=== PATIENT | male | born 1985 | race Caucasian/White ===

== ENCOUNTER → 2016-11-04 | Outpatient (CLI) | payer OTHER ==
--- NOTE | 2016-11-04 10:01 | DIAGNOSTIC IMAGING REPORT ---
PET/CT SKULL-THIGH CLINICAL HISTORY: LYMPHOMA COMPARISON STUDY: 07/24/2015 FINDINGS: The patient was injected with 15.8 mCi of F 18 labeled FDG. Following the standard induction phase, PET/CT scanning was performed from the skull base the upper thigh region. Within the neck, there is no evidence of pathologic mirlande activity. Increased within the left infratemporal fossa is felt to be related to muscular activity. Within the thorax, there is no pathologic mirlande activity. There are no FDG avid parenchymal nodules. There are no pleural effusions. There is no focal pulmonary consolidation. Within the abdomen and pelvis, there is physiologic urinary tract and bowel activity. There is no pathologic mirlande activity. There is no pathologic hepatic, splenic, or adrenal gland activity. There are no FDG avid bone lesions. There is bilateral L5 spondylolysis. There is a grade 1 spondylolisthesis of L5 and S1. There is a nonobstructing 3 mm left renal calculus. IMPRESSION: No evidence of pathologic FDG activity. Electronically signed by: Stuart Farley M.D. 11/04/2016 9:59 AM Dictated Date/Time: 11/04/2016 9:52 AM
== END | disposition home or self-care (01) ==
LOC: C.PET 07:43
PROVIDERS: ATTEND Internal Medicine
DX: C81.04 Nodular lymphocyte predominant Hodgkin lymphoma, lymph nodes of axilla and upper limb (principal); C85.90 Non-Hodgkin lymphoma, unspecified, unspecified site; F06.4 Anxiety disorder due to known physiological condition; G89.3 Neoplasm related pain (acute) (chronic); I80.9 Phlebitis and thrombophlebitis of unspecified site; R12 Heartburn

== ENCOUNTER → 2017-07-05 | Outpatient (CLI) | payer OTHER ==
--- NOTE | 2017-07-05 11:55 | DIAGNOSTIC IMAGING REPORT ---
PET/CT SKULL-THIGH CLINICAL HISTORY: 32 years-old Male with LYMPHOMA. Follow-up study in a patient with lymphoma. Subsequent treatment strategy COMPARISON: PET CT 11/04/2016, 07/24/2015 and 05/06/2015 TECHNIQUE: The patient was injected with 12.8 mCi of F-18 fluorodeoxyglucose (FDG) and an emission scan was performed from the skull vertex to the toes. Noncontrast CT was performed for attenuation correction and anatomic localization. The blood glucose level was 92 mg/dl. FINDINGS: HEAD AND NECK: Areas of hypermetabolic activity noted about the oral pharynx, submandibular, sublingual glands and cricoid cartilage, likely physiologic. Otherwise, there is a physiologic distribution of activity, with no hypermetabolic foci. CHEST: There is a physiologic distribution of activity, with no hypermetabolic mediastinal, hilar or pulmonary foci. ABDOMEN AND PELVIS: There is a physiologic distribution of activity within the liver, spleen, adrenal glands, gastrointestinal and urinary tracts, with no hypermetabolic foci. Likely physiologic uptake noted about the bilateral testicles. Nonspecific mildly increased uptake noted about the prostate. MUSCULOSKELETAL SYSTEM AND EXTREMITIES: There is a physiologic distribution of activity within the bone marrow, with no hypermetabolic foci. ADDITIONAL CT FINDINGS: Left subclavian [id number] catheter courses into the left-sided SVC terminating within the region of the coronary sinus, unchanged. No suspicious lung nodules identified. No pathologic-appearing adenopathy is seen. Nonobstructing left-sided nephrolithiasis. Normal appendix. Soft tissues and bones appear unremarkable. IMPRESSION: Unremarkable exam without evidence of residual or recurrent disease. The above report was generated using voice recognition software. It may contain grammatical, syntax or spelling errors. Electronically signed by: Barron Stone M.D. 07/05/2017 11:54 AM Dictated Date/Time: 07/05/2017 10:49 AM
== END | disposition home or self-care (01) ==
LOC: C.PET 08:12
PROVIDERS: ATTEND Internal Medicine
DX: C81.04 Nodular lymphocyte predominant Hodgkin lymphoma, lymph nodes of axilla and upper limb (principal); C85.90 Non-Hodgkin lymphoma, unspecified, unspecified site; F06.4 Anxiety disorder due to known physiological condition; G89.3 Neoplasm related pain (acute) (chronic); I80.9 Phlebitis and thrombophlebitis of unspecified site; R12 Heartburn

== ENCOUNTER → 2017-09-06 | Day surgery (SDC) | payer OTHER | END | disposition home or self-care (01) | LOC: C.MTU 11:57 | PROVIDERS: ATTEND Internal Medicine Critical Care Medicine | DX: Z53.09 Procedure and treatment not carried out because of other contraindication (principal) ==